=== PATIENT | male | born 1950 | race Hispanic/Latino ===

== ENCOUNTER 2017-07-07 12:17 | Outpatient (RCR) | payer OTHER ==
[~2017-07-07 12:17] MED LIST: AMIODARONE HCL200 MG PO; CLINDAMYCIN HC300 MG PO; COUMADIN5 MG PO; COUMADIN6 MG PO; CRESTOR5 MG PO; ENALAPRIL MALEA20 MG PO; FAMOTIDINE40 MG PO; FUROSEMIDE20 MG PO; GABAPENTIN300 MG PO; GLIPIZIDE10 MG PO; JANUVIA50 MG PO; LANTUS100 UNITS/ INJ; LOSARTAN POTASS25 MG PO; METFORMIN HCL1000 MG PO; METOPROLOL TAR100 MG PO; NEURONTIN600 MG PO; NORCO 10-325 T1 EACH PO; NORVASC5 MG PO; NOVOLOG MI100 UNITS/ INJ; SOMA350 MG PO; TAMSULOSIN HCL0.4 MG PO; TIZANIDINE HCL4 MG PO; TYLENOL # 31 EA PO; VICODIN 5-5001 EACH PO
== END 2017-07-25 ==
LOC: WCC 12:17
PROVIDERS: ATTEND Podiatrist Foot & Ankle Surgery
DX: E11.621 Type 2 diabetes mellitus with foot ulcer (principal); L97.529 Non-pressure chronic ulcer of other part of left foot with unspecified severity; M10.472 Other secondary gout, left ankle and foot; I10 Essential (primary) hypertension; G47.33 Obstructive sleep apnea (adult) (pediatric); I48.2 Chronic atrial fibrillation
CPT/HCPCS: 36415; 82948; G0463

== ENCOUNTER 2017-09-01 12:27 | Outpatient (RCR) | payer OTHER ==
[2017-09-01] MEDS ORDERED: LIDOCAINE VISC 2% SOLN 15 ML UDC ONE (15:21)
== END 2017-09-22 ==
LOC: WCC 12:27
PROVIDERS: ATTEND Podiatrist Foot & Ankle Surgery
DX: E11.621 Type 2 diabetes mellitus with foot ulcer (principal); L97.529 Non-pressure chronic ulcer of other part of left foot with unspecified severity; M10.472 Other secondary gout, left ankle and foot; I10 Essential (primary) hypertension; I48.2 Chronic atrial fibrillation; G47.33 Obstructive sleep apnea (adult) (pediatric)

== ENCOUNTER 2017-10-20 12:30 | Outpatient (RCR) | payer OTHER ==
[~2017-10-20 12:30] MED LIST changes: +LIDOCAINE HCL 2% LOCAL 20 ML VIAL ONE; +LIDOCAINE VISC 2% SOLN 15 ML UDC ONE
[2017-10-20] MEDS ORDERED: LIDOCAINE VISC 2% SOLN 15 ML UDC ONE (13:42)
== END 2017-10-23 ==
LOC: WCC 12:30
PROVIDERS: ATTEND Podiatrist Foot & Ankle Surgery
DX: E11.621 Type 2 diabetes mellitus with foot ulcer (principal); L97.529 Non-pressure chronic ulcer of other part of left foot with unspecified severity; M10.472 Other secondary gout, left ankle and foot; I10 Essential (primary) hypertension; I48.2 Chronic atrial fibrillation; G47.33 Obstructive sleep apnea (adult) (pediatric)
CPT/HCPCS: 11042; 11044; 36415; 82948; J2001

== ENCOUNTER 2017-11-17 12:19 | Outpatient (RCR) | payer OTHER ==
[~2017-11-17 12:19] MED LIST changes: -LIDOCAINE HCL 2% LOCAL 20 ML VIAL ONE; -LIDOCAINE VISC 2% SOLN 15 ML UDC ONE
[2017-11-17] MEDS ORDERED: LIDOCAINE VISC 2% SOLN 15 ML UDC ONE (17:39)
== END 2017-11-22 ==
LOC: WCC 12:19
PROVIDERS: ATTEND Podiatrist Foot & Ankle Surgery
DX: E11.621 Type 2 diabetes mellitus with foot ulcer (principal); L97.529 Non-pressure chronic ulcer of other part of left foot with unspecified severity; M10.472 Other secondary gout, left ankle and foot; I10 Essential (primary) hypertension; I48.2 Chronic atrial fibrillation; G47.33 Obstructive sleep apnea (adult) (pediatric)

== ENCOUNTER 2018-02-02 12:55 | Outpatient (RCR) | payer OTHER | END 2018-02-22 | LOC: WCC 12:55 | PROVIDERS: ATTEND Podiatrist Foot & Ankle Surgery | DX: E11.621 Type 2 diabetes mellitus with foot ulcer (principal); L97.529 Non-pressure chronic ulcer of other part of left foot with unspecified severity; G47.33 Obstructive sleep apnea (adult) (pediatric); I10 Essential (primary) hypertension; I48.2 Chronic atrial fibrillation; M10.472 Other secondary gout, left ankle and foot | CPT/HCPCS: 11042; 15275; 93922; 97597; 99213; Q4131 ==

== ENCOUNTER 2018-03-09 12:58 | Outpatient (RCR) | payer OTHER | END 2018-03-25 | LOC: WCC 12:58 | PROVIDERS: ATTEND Podiatrist Foot & Ankle Surgery | DX: E11.621 Type 2 diabetes mellitus with foot ulcer (principal); L97.529 Non-pressure chronic ulcer of other part of left foot with unspecified severity; M10.472 Other secondary gout, left ankle and foot; I10 Essential (primary) hypertension; I48.2 Chronic atrial fibrillation; G47.33 Obstructive sleep apnea (adult) (pediatric) ==

== ENCOUNTER 2018-04-20 13:24 | Outpatient (RCR) | payer OTHER | END 2018-04-24 | LOC: WCC 13:24 | PROVIDERS: ATTEND Podiatrist Foot & Ankle Surgery | DX: E11.621 Type 2 diabetes mellitus with foot ulcer (principal); L97.529 Non-pressure chronic ulcer of other part of left foot with unspecified severity; M10.472 Other secondary gout, left ankle and foot; I10 Essential (primary) hypertension; I48.2 Chronic atrial fibrillation; G47.33 Obstructive sleep apnea (adult) (pediatric) ==

== ENCOUNTER 2018-06-01 12:46 | Outpatient (RCR) | payer OTHER | END 2018-06-24 | LOC: WCC 12:46 | PROVIDERS: ATTEND Podiatrist Foot & Ankle Surgery | DX: E11.621 Type 2 diabetes mellitus with foot ulcer (principal); L97.529 Non-pressure chronic ulcer of other part of left foot with unspecified severity; I10 Essential (primary) hypertension; I48.2 Chronic atrial fibrillation; M10.472 Other secondary gout, left ankle and foot; G47.33 Obstructive sleep apnea (adult) (pediatric) ==

== ENCOUNTER 2018-06-29 14:07 | Outpatient (RCR) | payer OTHER | END 2018-07-25 | LOC: WCC 14:07 | PROVIDERS: ATTEND Podiatrist Foot & Ankle Surgery | DX: E11.621 Type 2 diabetes mellitus with foot ulcer (principal); L97.529 Non-pressure chronic ulcer of other part of left foot with unspecified severity; I10 Essential (primary) hypertension; I48.2 Chronic atrial fibrillation; M10.472 Other secondary gout, left ankle and foot; G47.33 Obstructive sleep apnea (adult) (pediatric) ==

== ENCOUNTER 2018-08-03 15:15 | Outpatient (RCR) | payer OTHER | END 2018-08-25 | LOC: WCC 15:15 | PROVIDERS: ATTEND Podiatrist Foot & Ankle Surgery | DX: E11.621 Type 2 diabetes mellitus with foot ulcer (principal); L97.529 Non-pressure chronic ulcer of other part of left foot with unspecified severity; I10 Essential (primary) hypertension; G47.33 Obstructive sleep apnea (adult) (pediatric); I48.2 Chronic atrial fibrillation; M10.472 Other secondary gout, left ankle and foot ==

== ENCOUNTER 2019-01-12 10:57 | Inpatient (IN) | payer OTHER ==
[~2019-01-12] VITALS: Ht 172.7 cm; Wt 91.2 kg
[2019-01-12] MEDS ORDERED: NITROGLYCERIN 2% OINT 1 GM PKT TOP STA (11:09)
[2019-01-12] MEDS ORDERED: ASPIRIN 81 MG CHEW TAB PO STA (11:09)
--- NOTE | 2019-01-12 11:25 | NUR ---
rec'd pt in walking rounds with gerdarn for continuity of care. iv access obtained. placed in a gown and on the monitor. meds given per 's ordrs. call syed in hand. bed low/locked
[2019-01-12 11:29] LABS: BASOPHILS % 0.5 % (0.0-1.0); EOSINOPHILS # (AUTO) 0.2 (0.0-0.4); EOSINOPHILS % 2.6 % (0.0-6.0); HEMATOCRIT 40.2 % (38.2-49.6); HEMOGLOBIN 13.3 g/dL (14.0-18.0); LYMPHOCYTES # (AUTO) 2.3 (1.0-3.2); LYMPHOCYTES % 28.1 % (18.0-39.1); MEAN CORPUSCULAR HEMOGLOBIN 26.3 pg (28-32); MEAN CORPUSCULAR HGB CONC 33.1 g/dL (31-35); MEAN CORPUSCULAR VOLUME 79.6 fL (81-99); MONOCYTES # (AUTO) 0.6 (0.2-0.8); MONOCYTES % 6.6 % (4.4-11.3); NEUTROPHILS # (AUTO) 5.1 (2.1-6.9); PLATELET COUNT 259 x10e3/uL (140-360); RED BLOOD COUNT 5.05 x10e6/uL (4.3-5.7); RED CELL DISTRIBUTION WIDTH 14.6 % (11.7-14.4)
[2019-01-12 11:33] LABS: BILIRUBIN,URINE NEGATIVE (NEGATIVE); CLARITY,URINE CLEAR (CLEAR); COLOR,URINE YELLOW (YELLOW); KETONES,URINE NEGATIVE (NEGATIVE); LEUKOCYTE ESTERASE ,URINE NEGATIVE (NEGATIVE); NITRITE,URINE NEGATIVE (NEGATIVE); PROTEIN,URINE DIPSTICK NEGATIVE (NEGATIVE); URINE UROBILINOGEN 0.2 mg/dL (0.2 - 1)
[2019-01-12 11:40] LABS: INR 1.29; PROTHROMBIN TIME 16.7 seconds (11.9-14.5)
[2019-01-12] MEDS ORDERED: METOPROLOL TARTRATE 50 MG TAB PO ONE (11:45)
[2019-01-12] MEDS ORDERED: METOPROLOL TARTRATE INJ 1 MG/ML VIAL IV ONE (11:45)
[2019-01-12 11:50] LABS: EPITHELIAL CELLS,URINE RARE /LPF
--- NOTE | 2019-01-12 12:14 | Diagnostic Imaging Report ---
Examination: Single AP view of the chest. COMPARISON: None. INDICATION: Chest pain DISCUSSION: Lungs are well-inflated. Linear opacities in the right midlung reflect fibrotic change or subsegmental atelectasis. No airspace consolidation, pleural effusion, or pneumothorax. Cardiomediastinal contour is within normal limits when accounting for portable, AP technique and rightward patient rotation. No acute osseous abnormality. IMPRESSION: Subsegmental atelectasis or focal scar in the right midlung. Otherwise no acute cardiopulmonary abnormality. Signed by: Dr. Avtar Will M.D. on 01/12/2019 12:11 PM
[2019-01-12 12:42] LABS: ALANINE AMINOTRANSFERASE 29 IU/L (0-55); ALBUMIN 4.5 g/dL (3.5-5.0); ALBUMIN/GLOBULIN RATIO 1.3 (0.8-2.0); ALKALINE PHOSPHATASE 62 IU/L (40-150); ANION GAP 20.1 mmol/L (8-16); BLOOD UREA NITROGEN 16 mg/dL (7-26); BUN/CREATININE RATIO 16 (6-25); CALCIUM 10.1 mg/dL (8.4-10.2); CARBON DIOXIDE 24 mmol/L (22-29); CHLORIDE 102 mmol/L (98-107); CREATINE KINASE 109 IU/L (30-200); CREATININE, SERUM 0.97 mg/dL (0.72-1.25); EST GLOMERULAR FILTRATION RATE > 60 ML/MIN (60-); GLUCOSE 100 mg/dL (74-118); POTASSIUM 4.1 mmol/L (3.5-5.1); SODIUM 142 mmol/L (136-145)
[2019-01-12] MEDS ORDERED: MORPHINE SULFATE 2 MG/ML SYR 1ML IV PRN (12:45)
[2019-01-12] MEDS ORDERED: FAMOTIDINE 20 MG/2 ML VIAL IV SCH (12:45)
[2019-01-12] MEDS ORDERED: NITROGLYCERIN 0.4 MG SUBL SL PRN (12:45)
[2019-01-12] MEDS ORDERED: DEXTROSE 50% SYRINGE 50 ML IV PRN (12:45)
[2019-01-12] MEDS ORDERED: ONDANSETRON HCL INJ 2MG/ML 2ML 2 MG/ML VIAL IV PRN (12:45)
--- OUTSIDE RECORDS SUMMARY | 2019-01-12 13:05 | XMS REPORT ---
Author Author [facility] Address Unknown Phone Unavailable Care Team Providers Care Facial Operator Name Role Phone Elio LLANES Unavailable Unavailable Problems This patient has no known problems. Allergies, Adverse Reactions, Alerts This patient has no known allergies or adverse reactions. Medications This patient has no known medications. Results Test Description Test Time Test Comments Text Results Atomic Results Result Comments CHEST SINGLE (PORTABLE) 2019-01-12 12:10:00 [place] [id number] Patient Name: SILVINO COELHO MR #: [id number] : 1950 Age/Sex: 68/M Req #: [id number] Adm Physician: Ordered by: YOLI LLANES MD Report #: [id number] Location: ER Room/Bed: Procedure: [id number] DX/CHEST SINGLE (PORTABLE) Exam Date: Exam Time: REPORT STATUS: Signed Examination: Single AP view of the chest. COMPARISON: None. INDICATION: Chest pain DISCUSSION: Lungs are well- inflated. Linear opacities in the right midlung reflect fibrotic change or subsegmental atelectasis. No airspace consolidation, pleural effusion, or pneumothorax. Cardiomediastinal contour is within normal limits when accounting for portable, AP technique and rightward patient rotation. No acute osseous abnormality. IMPRESSION: Subsegmental atelectasis or focal scar in the right midlung. Otherwise no acute cardiopulmonary abnormality. Signed by: Dr. Iram Cabrera M.D. on 01/12/2019 12:11 PM Dictated By: IRAM CABRERA MD 10 Transcribed By: SHAILA on 01/12/191210 COPY TO: YOLI LLANES MD
[2019-01-12] MEDS ORDERED: MORPHINE SULFATE INJ 4 MG/ML INJ 1ML IV PRN (13:30)
--- NOTE | 2019-01-12 15:08 | NUR ---
Patient admitted to unit from ER. Patient arrived via stretcher. patient is AAOx3. Patient c/o chest pain. No radiating pain at this time. Patient has a hx of afib. Lung cevallos clear to auscultation. Bowel sounds present x4. No edema noted. RIght BKA. Left great toe old foot wound. No open area or drainage noted. 3rd digit toenail on left foot noted to be dark in color. No c/o pain at this time. Right forearm IV in place. Family at bedside
[2019-01-12 15:18] VITALS: BP 180/80
[2019-01-12 15:22] VITALS: BP 180/80
[2019-01-12 15:30] VITALS: BP 194/105
[2019-01-12] MEDS ORDERED: TIZANIDINE HCL 4 MG TAB PO PRN (15:45)
[2019-01-12] MEDS: AMIODARONE HCL 200 MG TAB PO SCH (15:58)
[2019-01-12] MEDS: GLIPIZIDE 5 MG TAB PO SCH (15:58)
[2019-01-12] MEDS: LOSARTAN POTASSIUM 25 MG TAB PO SCH (15:58)
[2019-01-12] MEDS: TAMSULOSIN HCL 0.4 MG CAP PO SCH (15:58)
[2019-01-12] MEDS ORDERED: AMLODIPINE BESYLATE 5 MG TAB PO SCH (16:00)
[2019-01-12] MEDS: HYDROCODONE/APAP 10MG-325MG TAB PO PRN ×2 (16:01→20:50)
[2019-01-12] MEDS: INSULIN LISPRO 100 UNIT/1 ML 3ML VIAL SQ SCH ×2 (16:01→20:39)
[2019-01-12] MEDS ORDERED: HYDRALAZINE HCL 20 MG/ML VIAL IV PRN (16:30)
[2019-01-12] MEDS ORDERED: NON-FORMULARY MEDICATION (Glipizide 10 MG) PO SCH (17:00)
[2019-01-12] MEDS ORDERED: METFORMIN HCL 500 MG TAB PO SCH (17:00)
[2019-01-12] MEDS ORDERED: WARFARIN SOD 5 MG TAB PO SCH (17:00)
[2019-01-12] MEDS ORDERED: NON-FORMULARY MEDICATION (Metformin Hcl 1,000 MG) PO SCH (17:00)
--- NOTE | 2019-01-12 18:35 | NUR ---
Consent signed for Stress test. explained testing. Family in room.
[2019-01-12] MEDS ORDERED: NON-FORMULARY MEDICATION (Famotidine 40 MG) PO SCH (21:00)
[2019-01-12] MEDS: GABAPENTIN 300 MG CAP PO SCH (21:14)
[2019-01-12] MEDS: METOPROLOL TARTRATE 25 MG TAB PO SCH (21:14)
[2019-01-12] MEDS: FAMOTIDINE 20 MG TAB PO SCH (21:14)
[2019-01-12] MEDS: CLINDAMYCIN HCL 150 MG CAP PO SCH (21:14)
[2019-01-12 21:29] LABS: CREATINE KINASE MB 2.7 ng/mL (0-5.0)
[2019-01-12 21:38] VITALS: BP 147/80
--- NOTE | 2019-01-12 23:54 | Consultation ---
DATE OF CONSULTATION: 01/12/2019 Cardiology Consultation CHIEF COMPLAINT: The patient is a 68-year-old with chest pain. HISTORY OF PRESENT ILLNESS: The patient is a 68-year-old, who was in the physician's office when he experienced a fist-like chest pain, which lasted about 5 minutes. The patient was sent to the emergency room for evaluation. The patient reports it is chronic atrial fibrillation. He has had similar pains multiple times in the past. No shortness of breath. No nausea. No vomiting. No abdominal pain. PAST MEDICAL HISTORY: Significant for: 1. Chronic atrial fibrillation. 2. Diabetes mellitus. 3. Hypertension. 4. Right knee amputation. 5. Appendectomy. 6. Back surgery. CURRENT MEDICATIONS: At home include amiodarone, amlodipine, gabapentin, insulin, metformin, metoprolol. SOCIAL HISTORY: The patient does not drink and does not smoke. FAMILY HISTORY: There is a known family history of coronary artery disease. PHYSICAL EXAMINATION: GENERAL: The patient is a well-developed, well-nourished male, in no obvious distress. VITAL SIGNS: Included temperature of 97.1, blood pressure 160/80. NECK: Supple. No jugular venous distention. No carotid bruits. CHEST: Clear to auscultation and percussion. CARDIAC: Demonstrated normal S1 and S2 with an irregularly irregular rhythm. ABDOMEN: Demonstrated good bowel sounds. No tenderness and no masses. EXTREMITIES: The patient had a oyuod-xrf-pexn amputation. NEUROLOGIC: The patient was alert and oriented x3. Cranial nerves II through XII are intact. Motor strength +5/+5 in all limbs. IMAGING STUDIES: The patient's EKG demonstrated atrial fibrillation with some nonspecific ST and T-wave changes. IMPRESSION: The patient is a 68-year-old with chronic atrial fibrillation, admitted with atypical chest pain. RECOMMENDATIONS: As follows: 1. An echocardiogram has been ordered. 2. The patient will need to be monitored on telemetry. 3. Cardiac enzymes have been ordered. 4. A Lexiscan nuclear stress test will need to be done to exclude ischemia. MD RUI Love/YANIQUE /[id number] cc: MD Ravi Johnston MD
[2019-01-13] VITALS (8 sets, daily range): BP systolic 124–148; BP diastolic 64–85
[2019-01-13] MEDS: CLINDAMYCIN HCL 150 MG CAP PO SCH ×3 (04:54→21:21)
[2019-01-13 05:32] LABS: BASOPHILS # (AUTO) 0.1 (0.0-0.1); BASOPHILS % 0.5 % (0.0-1.0); EOSINOPHILS # (AUTO) 0.2 (0.0-0.4); EOSINOPHILS % 2.2 % (0.0-6.0); HEMATOCRIT 38.1 % (38.2-49.6); HEMOGLOBIN 12.2 g/dL (14.0-18.0); LYMPHOCYTES # (AUTO) 2.4 (1.0-3.2); LYMPHOCYTES % 25.4 % (18.0-39.1); MEAN CORPUSCULAR HEMOGLOBIN 25.7 pg (28-32); MEAN CORPUSCULAR VOLUME 80.4 fL (81-99); MONOCYTES # (AUTO) 0.8 (0.2-0.8); MONOCYTES % 8.4 % (4.4-11.3); NEUTROPHILS % 62.8 % (38.7-80.0); PLATELET COUNT 270 x10e3/uL (140-360); RED BLOOD COUNT 4.74 x10e6/uL (4.3-5.7); RED CELL DISTRIBUTION WIDTH 14.6 % (11.7-14.4)
[2019-01-13 05:53] LABS: CREATINE KINASE MB 1.2 ng/mL (0-5.0)
[2019-01-13 06:11] LABS: ALANINE AMINOTRANSFERASE 25 IU/L (0-55); ALBUMIN 3.9 g/dL (3.5-5.0); ALBUMIN/GLOBULIN RATIO 1.2 (0.8-2.0); ALKALINE PHOSPHATASE 57 IU/L (40-150); BLOOD UREA NITROGEN 18 mg/dL (7-26); BUN/CREATININE RATIO 18 (6-25); CALCIUM 9.6 mg/dL (8.4-10.2); CARBON DIOXIDE 26 mmol/L (22-29); CHLORIDE 101 mmol/L (98-107); CHOL/HDL RATIO 2.4 (3.9-4.7); CHOLESTEROL 132 MD/DL (0-199); CREATININE, SERUM 1.01 mg/dL (0.72-1.25); EST GLOMERULAR FILTRATION RATE > 60 ML/MIN (60-); GLUCOSE 130 mg/dL (74-118); HDL CHOLESTEROL 54 MG/DL (40-60); LDL CHOLESTEROL 54 MG/DL (60-130); SODIUM 138 mmol/L (136-145); TRIGLYCERIDES 122 MG/DL (0-149)
[2019-01-13] MEDS: INSULIN LISPRO 100 UNIT/1 ML 3ML VIAL SQ SCH ×4 (07:30→21:24)
[2019-01-13] MEDS ORDERED: FUROSEMIDE 20 MG TAB PO SCH (09:00)
--- NOTE | 2019-01-13 09:57 | History and Physical ---
PRIMARY CARE PHYSICIAN: Dr. Ravi Castañeda. SHIP SCRAPER: Dr. Avtar Lezama. CHIEF COMPLAINT: Chest pain. HISTORY OF PRESENT ILLNESS: The patient is a pleasant 68-year-old male, who came to the hospital with complaint of chest pain. The patient is otherwise stable. He does have baseline atrial fibrillation. Cardiac enzyme is negative. The patient is pending for a stress test. PAST MEDICAL HISTORY: Including peripheral vascular disease with a stent to the lower extremity. Diabetes type 2, chronic kidney disease, right wvtoo-quu-uhbp amputation, chronic atrial fibrillation, lower back surgery, appendectomy, hypertension. SOCIAL HISTORY: The patient does not smoke or use alcohol. No recreational drug use. ALLERGIES: NO KNOWN ALLERGIES. HOME MEDICATIONS: List is reviewed. REVIEW OF SYSTEMS: Atypical pain, resolved. PHYSICAL EXAMINATION: VITAL SIGNS: Temperature is 98, blood pressure 140/71, pulse rate is 105, respirations 18. GENERAL: The patient is not in acute distress. He is awake. HEENT: Normocephalic, atraumatic. Pupils reactive. Anicteric. NECK: Grossly supple. PULMONARY: Diminished breath sounds without any wheezing or rales. CARDIOVASCULAR: S1, S2. Regular rate and rhythm. ABDOMEN: Soft, obese, otherwise unremarkable. EXTREMITIES: No gross cyanosis or edema. Right BKA. NEUROLOGIC: No gross focal deficit. LABORATORY DATA: Sodium is 138, potassium 4, chloride 101, bicarb 25, BUN 18, creatinine 1.6, glucose is 130. WBC is 9.5, hemoglobin 12.2, hematocrit 38.1, platelets is 270. IMPRESSION: 1. Atypical chest pain. 2. Peripheral vascular disease. 3. Multiple chronic baseline problems. PLAN: The patient will have a stress test today. May discharge home with normal stress test, otherwise he will be admitted for further workup. MD YURIY Johnston/YANIQUE /[id number]
[2019-01-13] MEDS ORDERED: REGADENOSON 0.4 MG/5 ML SYR IV ONE (12:14)
[2019-01-13] MEDS: GLIPIZIDE 5 MG TAB PO SCH ×2 (13:42→16:40)
[2019-01-13] MEDS: AMIODARONE HCL 200 MG TAB PO SCH (13:43)
[2019-01-13] MEDS: ASPIRIN 81 MG ENTERIC COATED PO SCH (13:43)
[2019-01-13] MEDS: TAMSULOSIN HCL 0.4 MG CAP PO SCH (13:44)
[2019-01-13] MEDS: LOSARTAN POTASSIUM 25 MG TAB PO SCH (13:44)
[2019-01-13] MEDS: AMLODIPINE BESYLATE 5 MG TAB PO SCH (13:45)
[2019-01-13] MEDS: GABAPENTIN 300 MG CAP PO SCH ×3 (13:45→21:21)
[2019-01-13] MEDS: METOPROLOL TARTRATE 25 MG TAB PO SCH ×2 (13:45→21:21)
[2019-01-13] MEDS: HYDROCODONE/APAP 10MG-325MG TAB PO PRN ×2 (13:54→21:20)
[2019-01-13] MEDS: INSULIN GLARGINE 100 UNITS/ML VIAL SC SCH (13:59)
[2019-01-13] MEDS: ENOXAPARIN SODIUM INJ 100 MG/ML SYR SC SCH (16:40)
--- NOTE | 2019-01-13 17:30 | NUR ---
The pt. was transferred from [facility] to room 114 due to positive stress test an plans for heart cath and ptca on Wednesday. The pt. requested shower upon arrival and tele was removed and arm wrapped.
--- NOTE | 2019-01-13 19:00 | NUR ---
RECEIVED PATIENT IN BEDSIDE REPORT. PATIENT RESTING IN BED AT THIS TIME. NO PAIN REPORTED. NO S&S OF DISTRESS NOTED. BED LOCKED IN LOWEST POSITION, SIDE RAILS UPX2, CALL LIGHT IN REACH.
--- NOTE | 2019-01-13 19:10 | Myoview Stress Test ---
DATE OF STUDY: 01/12/2019 16:16:00 Stress Test - Treadmill ONLY INDICATION: Chest pain. TECHNIQUE: The patient was given 11 mCi of Myoview. Resting images were obtained in the horizontal long axis, vertical long axis, and short axis. The patient was then hooked up to the EKG machine, Lexiscan was infused over 15 seconds. Immediately after Lexiscan infusion, the patient was given 33 mCi of Myoview. Stress images were obtained 30 minutes after completion of Lexiscan infusion. Stress images were obtained in the horizontal long axis, vertical long axis, and short axis. RESULTS: 1. The resting EKG demonstrated atrial fibrillation with some nonspecific ST and T-wave changes. 2. There were no EKG changes and no symptoms during Lexiscan infusion. 3. There was normal perfusion to all segments of the myocardium on the resting images. 4. There was diminished perfusion to the anterior septum on the stress images. 5. There was normal left ventricular size and function with an ejection fraction of 57%. CONCLUSIONS: There was a reversible defect in the anterior septum concerning for ischemia. MD FRED Love/MODL /[id number]
[2019-01-13] MEDS: FAMOTIDINE 20 MG TAB PO SCH (21:21)
[2019-01-14] VITALS (8 sets, daily range): BP systolic 117–138; BP diastolic 58–81
[2019-01-14] MEDS: ENOXAPARIN SODIUM INJ 100 MG/ML SYR SC SCH ×2 (05:35→17:42)
[2019-01-14] MEDS: CLINDAMYCIN HCL 150 MG CAP PO SCH ×3 (05:35→21:18)
--- NOTE | 2019-01-14 07:00 | NUR ---
BEDSIDE SHIFT REPORT RECEIVED FROM NIGHT RN, PT IN STABLE CONDITION, DENIES PAIN AT THIS TIME, R AC 20G NO SS OF INFILTRATION NOTED, LEFT PEDAL PULSE PALPABLE, UPDATED ON POC VOICED UNDERSTANDING, CALL LIGHT IN REACH WILL CONTINUE OT MONITOR
[2019-01-14] MEDS: INSULIN LISPRO 100 UNIT/1 ML 3ML VIAL SQ SCH ×4 (07:30→21:26)
[2019-01-14] MEDS: GLIPIZIDE 5 MG TAB PO SCH ×2 (08:30→17:41)
[2019-01-14] MEDS: AMIODARONE HCL 200 MG TAB PO SCH (09:15)
[2019-01-14] MEDS: HYDROCODONE/APAP 10MG-325MG TAB PO PRN ×3 (09:15→21:25)
[2019-01-14] MEDS: INSULIN GLARGINE 100 UNITS/ML VIAL SC SCH (09:15)
[2019-01-14] MEDS: GABAPENTIN 300 MG CAP PO SCH ×3 (09:15→21:18)
[2019-01-14] MEDS: TAMSULOSIN HCL 0.4 MG CAP PO SCH (09:15)
[2019-01-14] MEDS: ASPIRIN 81 MG ENTERIC COATED PO SCH (09:15)
[2019-01-14] MEDS: METOPROLOL TARTRATE 25 MG TAB PO SCH ×2 (09:15→21:18)
[2019-01-14] MEDS: AMLODIPINE BESYLATE 5 MG TAB PO SCH (09:15)
[2019-01-14] MEDS: LOSARTAN POTASSIUM 25 MG TAB PO SCH (09:15)
[2019-01-14] MEDS ORDERED: ONDANSETRON HCL 4 MG ORAL DISINTEGRATING TAB PO PRN (10:15)
--- NOTE | 2019-01-14 15:59 | NUR ---
Nutrition Screen Note RD Recommendation for Physician: Continue current diet as ordered Plan of Care: RD following, monitoring for tolerance and adequacy Nutrition reason for involvement: Nutrition Risk Trigger - MST Primary Diagnose(s): 1. Atypical chest pain. 2. Peripheral vascular disease. 3. Multiple chronic baseline problems. PMH: peripheral vascular disease with a stent to the lower extremity, diabetes type 2, chronic kidney disease, right nlunj-klx-mzda amputation, chronic atrial fibrillation, lower back surgery, appendectomy, hypertension Ht: 68in Wt: 202.01lb BMI: n/a IBW: 145lbs RD Assessment: (01/14) Chart reviewed. Labs and meds reviewed. 68yo M, who was admitted for chest pain. Visited pt in the room. Pt reported good appetite. No complains of nausea or vomiting. Pt denied any chewing or swallowing difficulty. Weight has been stable. 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 Current diet is appropriate and adequate. Will continue to monitor and follow. Current Diet: ADA 1600 Malnutrition Evaluation (01/14) The patient does not meet criteria for a specified degree of malnutrition at this time. Will re-evaluate at follow-up as appropriate. Diet Education Needs Assessment: Diet education not indicated. Nutrition Care Level: low Signed: Gemma Merino, MS, RD, LD
--- NOTE | 2019-01-14 19:00 | NUR ---
RECEIVED PATIENT IN BEDSIDE REPORT. PATIENT REPORTS PAIN IS 4/10. NO S&S OF DISTRESS NOTED. BED LOCKED IN LOWEST POSITION. SIDE RAILS UPX2. CALL LIGHT IN REACH.
--- NOTE | 2019-01-14 19:40 | NUR ---
DISCUSSED WITH PATIENT IMPORTANCE OF TURNING SIDE TO SIDE TO REDUCE RISK OF PRESSURE INJURY. PATIENT STATED HE CAN TURN SIDE TO SIDE BUT DOES NOT OFTEN STAY ON SIDE DUE TO PAIN IN LEGS. PATIENT STATES HE GETS OUT OF BED TO HIS WHEELCHAIR ONLY WHEN HE NEEDS TO SHOWER OR HAVE A BOWEL MOVEMENT. APPLIED ALTERNATING PRESSURE PUMP TO MATTRESS, EXPLAINING IT WILL REDUCE RISK OF SKIN INJURY. ADDITIONALLY, GOT WEDGE TO HELP HIM STAY PARTIALLY ON SIDES WITHOUT CAUSING THE PAIN OF BEING FULLY ON SIDE. PATIENT'S SKIN IS INTACT, NO REDNESS NOTED TO SACRUM AT THIS TIME. PATIENT VERBALIZED UNDERSTANDING.
[2019-01-14] MEDS: FAMOTIDINE 20 MG TAB PO SCH (21:18)
[2019-01-15] VITALS (7 sets, daily range): BP systolic 122–164; BP diastolic 67–85
[2019-01-15] MEDS: CLINDAMYCIN HCL 150 MG CAP PO SCH ×3 (05:43→21:18)
[2019-01-15] MEDS: ENOXAPARIN SODIUM INJ 100 MG/ML SYR SC SCH ×2 (05:43→16:14)
[2019-01-15] MEDS: ASPIRIN 81 MG ENTERIC COATED PO SCH (08:38)
[2019-01-15] MEDS: INSULIN LISPRO 100 UNIT/1 ML 3ML VIAL SQ SCH ×4 (08:38→21:00)
[2019-01-15] MEDS: GLIPIZIDE 5 MG TAB PO SCH ×2 (08:38→16:14)
[2019-01-15] MEDS: AMLODIPINE BESYLATE 5 MG TAB PO SCH (08:39)
[2019-01-15] MEDS: METOPROLOL TARTRATE 25 MG TAB PO SCH ×2 (08:39→21:00)
[2019-01-15] MEDS: TAMSULOSIN HCL 0.4 MG CAP PO SCH (08:39)
[2019-01-15] MEDS: AMIODARONE HCL 200 MG TAB PO SCH (08:39)
[2019-01-15] MEDS: LOSARTAN POTASSIUM 25 MG TAB PO SCH (08:39)
[2019-01-15] MEDS: INSULIN GLARGINE 100 UNITS/ML VIAL SC SCH (08:39)
[2019-01-15] MEDS: GABAPENTIN 300 MG CAP PO SCH ×3 (08:39→21:00)
[2019-01-15] MEDS: HYDROCODONE/APAP 10MG-325MG TAB PO PRN ×3 (08:46→22:42)
[2019-01-15 11:03] LABS: BASOPHILS # (AUTO) 0.1 (0.0-0.1); BASOPHILS % 0.7 % (0.0-1.0); EOSINOPHILS # (AUTO) 0.2 (0.0-0.4); EOSINOPHILS % 2.1 % (0.0-6.0); HEMATOCRIT 40.2 % (38.2-49.6); HEMOGLOBIN 13.4 g/dL (14.0-18.0); LYMPHOCYTES # (AUTO) 1.8 (1.0-3.2); LYMPHOCYTES % 24.5 % (18.0-39.1); MEAN CORPUSCULAR HEMOGLOBIN 26.5 pg (28-32); MEAN CORPUSCULAR HGB CONC 33.3 g/dL (31-35); MEAN CORPUSCULAR VOLUME 79.6 fL (81-99); MONOCYTES # (AUTO) 0.6 (0.2-0.8); MONOCYTES % 8.3 % (4.4-11.3); NEUTROPHILS # (AUTO) 4.8 (2.1-6.9); NEUTROPHILS % 63.7 % (38.7-80.0); PLATELET COUNT 270 x10e3/uL (140-360); RED BLOOD COUNT 5.05 x10e6/uL (4.3-5.7); RED CELL DISTRIBUTION WIDTH 14.5 % (11.7-14.4)
[2019-01-15 11:31] LABS: ANION GAP 14.1 mmol/L (8-16); BLOOD UREA NITROGEN 13 mg/dL (7-26); BUN/CREATININE RATIO 15 (6-25); CALCIUM 9.1 mg/dL (8.4-10.2); CARBON DIOXIDE 25 mmol/L (22-29); CHLORIDE 103 mmol/L (98-107); CREATININE, SERUM 0.86 mg/dL (0.72-1.25); EST GLOMERULAR FILTRATION RATE > 60 ML/MIN (60-); GLUCOSE 220 mg/dL (74-118); POTASSIUM 4.1 mmol/L (3.5-5.1); SODIUM 138 mmol/L (136-145)
--- NOTE | 2019-01-15 19:06 | NUR ---
Report given to oncoming nurse of patient's status. Resting in bed, side rails upx2, call light within reach. AAOX3 to time, person,place. Respirations even and unlabored. no s/s of acute distress noted.
--- NOTE | 2019-01-15 20:00 | NUR ---
INITIAL ASSESSMENT COMPLETE, PT IN BED, C/O LEG SPASMS, AND NEUROPATHY, TELE ON PT #6, NO DRAINAGE TO LEFT TOE SCAB, IV INTACT, RIGHT BKA, CALL LIGHT IN REACH, NO C/O PAIN AT THIS TIME
[2019-01-15] MEDS: FAMOTIDINE 20 MG TAB PO SCH (21:00)
[2019-01-16] VITALS (8 sets, daily range): BP systolic 125–155; BP diastolic 58–79
--- NOTE | 2019-01-16 | NUR ---
pt awake for vs, vs stable, no distress noted, call light in reach, no other needs
[2019-01-16] MEDS: CLINDAMYCIN HCL 150 MG CAP PO SCH ×3 (06:00→21:33)
[2019-01-16] MEDS: ENOXAPARIN SODIUM INJ 100 MG/ML SYR SC SCH ×2 (06:00→17:48)
--- NOTE | 2019-01-16 06:17 | NUR ---
pt awake for meds, vs stable, call light in reach, no distress or pain noted.
--- NOTE | 2019-01-16 07:15 | NUR ---
PT RESTING IN BED AA0X3. PT IS IN NO S.S OF DISTRESS PT HAS AN IV TO THE RIGHT AC 20 SL PATENT AND DRY PT IS ON TELEMETRY MONITORING RUNNING A FIB CONTROLLED PT IS ON RA TOLERATING WELL, NO SOB NOTED OR REPORTED PT HAS A BKA (OLD STUMP) WILL CONTINUE MONITOR PT CLOSELY, SIDE RAILX2, BED WHEELS LOCKED CALL LIGHT IS WITHIN EASY REACH, INSTRUCTED TO CALL FOR ASSISTANCE IF NEEDED
[2019-01-16] MEDS: ASPIRIN 81 MG ENTERIC COATED PO SCH (08:28)
[2019-01-16] MEDS: GABAPENTIN 300 MG CAP PO SCH ×3 (08:29→20:36)
[2019-01-16] MEDS: TAMSULOSIN HCL 0.4 MG CAP PO SCH (08:29)
[2019-01-16] MEDS: AMIODARONE HCL 200 MG TAB PO SCH (08:29)
[2019-01-16] MEDS: LOSARTAN POTASSIUM 25 MG TAB PO SCH (08:29)
[2019-01-16] MEDS: METOPROLOL TARTRATE 25 MG TAB PO SCH ×2 (08:29→20:36)
[2019-01-16] MEDS: AMLODIPINE BESYLATE 5 MG TAB PO SCH (08:29)
[2019-01-16] MEDS: INSULIN GLARGINE 100 UNITS/ML VIAL SC SCH (08:30)
[2019-01-16] MEDS: INSULIN LISPRO 100 UNIT/1 ML 3ML VIAL SQ SCH ×4 (08:38→20:47)
[2019-01-16] MEDS: GLIPIZIDE 5 MG TAB PO SCH ×2 (08:38→17:48)
[2019-01-16] MEDS: HYDROCODONE/APAP 10MG-325MG TAB PO PRN ×3 (08:39→20:37)
[2019-01-16] MEDS ORDERED: BISACODYL 10 MG SUPP PR ONE (09:00)
[2019-01-16] MEDS ORDERED: MAGNESIUM HYDROXIDE 30 ML UDC PO ONE (09:00)
[2019-01-16] MEDS ORDERED: BISACODYL 10 MG SUPP PR PRN (09:00)
[2019-01-16] MEDS ORDERED: MAGNESIUM HYDROXIDE 30 ML UDC PO PRN (09:00)
[2019-01-16] MEDS: SENNOSIDES 8.6 MG TAB PO SCH ×2 (10:11→17:48)
--- NOTE | 2019-01-16 10:17 | NUR ---
IMM EXPLAINED TO PT, SIGNED BY PT AND PUT IN PT'S CHART COPY TO PT IN CARE TRANSITIONS FOLDER
--- NOTE | 2019-01-16 17:30 | NUR ---
PAGED MD BERNABE REGARDING ADMINISTRATION OF LOVENOX DOSE AT 1800. AWAITING FOR CALL BACK
[2019-01-16 18:43] LABS: INR 0.99; PROTHROMBIN TIME 13.6 seconds (11.9-14.5)
[2019-01-16] MEDS: FAMOTIDINE 20 MG TAB PO SCH (20:36)
[2019-01-17] VITALS (16 sets, daily range): BP systolic 120–158; BP diastolic 66–88
--- NOTE | 2019-01-17 04:37 | NUR ---
PATIENT PREPARED FOR PROCEDURE TODAY WITH JONE.
[2019-01-17] MEDS: CLINDAMYCIN HCL 150 MG CAP PO SCH ×2 (05:40→14:09)
[2019-01-17] MEDS ORDERED: HEPARIN SOD (PORCINE) 1000 UNIT/ML 30ML ONE (07:03)
[2019-01-17] MEDS ORDERED: MIDAZOLAM HCL 2 MG/2 ML VIAL ONE ×2 (07:03→07:54)
[2019-01-17] MEDS ORDERED: FENTANYL CITRATE/PF 100MCG/2 ML INJ ONE (07:03)
[2019-01-17] MEDS ORDERED: LIDOCAINE HCL 2% LOCAL 20 ML VIAL ONE (07:03)
[2019-01-17] MEDS ORDERED: IOPAMIDOL 370 MG/ML 200 ML INFUS..BTL INJ ONE ×2 (07:03→07:04)
[2019-01-17] MEDS ORDERED: SODIUM CHLORIDE 0.9% 1000ML 1,000 ML ONE (07:04)
[2019-01-17] MEDS ORDERED: NITROGLYCERIN/D5W 200 MCG/ML 250 ML ONE (07:04)
[2019-01-17] MEDS ORDERED: VERAPAMIL HCL 2.5 MG/ML 2 ML VIAL ONE (07:08)
--- NOTE | 2019-01-17 07:10 | NUR ---
PT OFF UNIT FOR OPHTHALMIC PATHOLOGIST
[2019-01-17] MEDS: INSULIN LISPRO 100 UNIT/1 ML 3ML VIAL SQ SCH ×2 (07:30→12:16)
--- NOTE | 2019-01-17 08:45 | NUR ---
0845am Received pt in Rm #9 Identiferx2. [facility], DR Lezama, no fix . Rt TR band approach (13cc R=TR Band.Received handoff Beny BAY, Back to baseline orientation Ox4 Respiration regular on RA 98%. at bedside knows POC ok to remove air at 9:20am. Neurovascular function intact.Abdomen soft and non tender denies necessity to defecate or urinate. left ppx2 Doppler. Rt. amputation . RT iv noted w/o infiltration infusing NS 800cc in bag. Assist with snack tray tolerated well Denies c/o. No gross issues pain pallor pressure or dysrhythmia. ds/rn
--- NOTE | 2019-01-17 09:20 | NUR ---
0920am Tr band air removal started with 13cc in balloon. returned to rm 114 . -2cc positive 11cc Neuro vascular function intact. 0930am oozed a little pause air reduction Neuro vascular function intact No active bleeding. 0945am resumed air removal -2cc positive 9cc Normal neuro vascular function.positive 9cc 1000am -2cc no ooze normal neuro vascular function positive 7cc 1015am -2cc no ooze TR band off phoned report to floor staff Sterile 2x2 with Tegaderm and Coban with splint. Instructed on POC and aware.NO gross issues pain pallor pressure or dysrhythmia. Normal neuro vascular function.
--- NOTE | 2019-01-17 10:25 | NUR ---
REPORT RECEIVED FROM TED IN SPACE TECHNOLOGIST AWAITING FOR PT TO ARRIVE TO FLOOR
--- NOTE | 2019-01-17 10:30 | NUR ---
1030am Report to [facility] Duncan face to face Stable vs and EKg NOrmal neuro vascular function. Tolerating po intact NO bleeding splint with coban ask keep in till shower in am. No heavy use 1wk or submerge 1wk. Left pt room call light at bedside .Ask to request for help to get up and family at bedside.Denies discomfort
--- NOTE | 2019-01-17 10:45 | NUR ---
PT BACK FROM [facility] REPORTER . RIGHT WRIST PRESENT S/P HEART CATH. PT ABLE TO MOVE DIGITS, CAP REFILL <3 SEC. PT IS RESTING RIGHT ARM ON PILLOW FAMILY IS AT BEDSIDE , WILL CONTINUE TO MONITOR
[2019-01-17] MEDS: GABAPENTIN 300 MG CAP PO SCH ×2 (10:52→14:09)
[2019-01-17] MEDS: ASPIRIN 81 MG ENTERIC COATED PO SCH (10:52)
[2019-01-17] MEDS: LOSARTAN POTASSIUM 25 MG TAB PO SCH (10:52)
[2019-01-17] MEDS: METOPROLOL TARTRATE 25 MG TAB PO SCH (10:52)
[2019-01-17] MEDS: TAMSULOSIN HCL 0.4 MG CAP PO SCH (10:52)
[2019-01-17] MEDS: AMIODARONE HCL 200 MG TAB PO SCH (10:52)
[2019-01-17] MEDS: AMLODIPINE BESYLATE 5 MG TAB PO SCH (10:52)
[2019-01-17] MEDS: SENNOSIDES 8.6 MG TAB PO SCH (10:53)
[2019-01-17] MEDS: INSULIN GLARGINE 100 UNITS/ML VIAL SC SCH (11:04)
[2019-01-17] MEDS: HYDROCODONE/APAP 10MG-325MG TAB PO PRN (11:07)
--- NOTE | 2019-01-17 11:32 | NUR ---
RIGHT WRIST BRACE IS IN PLACE. CAP REFILL TO ALL FINGERS NOTED <3 SEC PT CAN MOVE FINGERS. WILL CONTINUE TO MONITOR
--- NOTE | 2019-01-17 15:23 | Operative Report ---
DATE OF PROCEDURE: 01/17/2019 SURGEON: Avtar Lezama MD PROCEDURE: Left heart catheterization. INDICATIONS: 1. Chest pain. 2. Abnormal stress test. 3. Coronary artery disease. COMPLICATIONS: None. ANESTHESIA: 1. Versed. 2. Fentanyl. 3. Lidocaine. TECHNIQUE: The right wrist was draped and prepped in the usual manner. The area was anesthetized with lidocaine. Standard Seldinger technique was used to place a 5-Kazakh sheath into the right radial artery without difficulty. A TIG catheter was used to selectively engage the right coronary artery. A JL3.5 catheter was used to selectively engage the left coronary artery. A pigtail catheter was used to perform a left ventriculogram. There were no complications. RESULTS: 1. There is a normal left main trunk. 2. There is a large left anterior descending artery, which gave rise to a medium-sized diagonal branch. There was about 40% stenosis in the mid left anterior descending artery. 3. There was a medium-sized AV circumflex artery, which gave rise to a large bifurcating obtuse marginal branch. There was 40% at the very origin of the AV circumflex artery. 4. There was a large dominant right coronary artery with minimal disease. 5. There was normal left ventricular size and function with an ejection fraction of 60%. CONCLUSION: The patient has some mild nonobstructive coronary artery disease with no significant stenosis. Avtar Lezama MD DSH/MODL /[id number] cc: Dean Carroll MD
--- NOTE | 2019-01-17 15:27 | NUR ---
called md macedo left voicemail asking if pt was ok for dc home . awaiting for call back
--- NOTE | 2019-01-17 16:00 | NUR ---
md hellen mar dc to home iv dc pressure dressing applied and taped dc instructions given, pt verbalized understanding pt is now off unit to home via wheel chair
[2019-01-17] MEDS ORDERED: WARFARIN SOD 5 MG TAB PO SCH (17:00)
[2019-01-18] MEDS ORDERED: AMLODIPINE BESYLATE 10 MG TAB PO SCH (09:00)
== END 2019-01-17 16:11 | disposition home or self-care (01) | DRG 287 ==
LOC: ER 10:57 → ERHOLD 13:03 → IMCU 15:03 → OBSVTOIN 01-13 16:00 → MED/SURG 01-13 17:11 → UNDODISIN 01-14 16:50
PROVIDERS: ADMIT Internal Medicine; ATTEND Internal Medicine
PROC: 4A023N7 Measurement of Cardiac Sampling and Pressure, Left Heart, Percutaneous Approach (ICD-10-PCS; principal; 2019-01-13)
PROC: B2111ZZ Fluoroscopy of Multiple Coronary Arteries using Low Osmolar Contrast (ICD-10-PCS; 2019-01-13)
PROC: B2151ZZ Fluoroscopy of Left Heart using Low Osmolar Contrast (ICD-10-PCS; 2019-01-13)
DX: I25.10 Atherosclerotic heart disease of native coronary artery without angina pectoris (principal); I73.9 Peripheral vascular disease, unspecified; I48.2 Chronic atrial fibrillation; Z79.01 Long term (current) use of anticoagulants; I10 Essential (primary) hypertension
CPT/HCPCS: 36415; 71045; 78452; 80048; 80053; 80061; 81001; 82550; 82553; 82948; 83880; 84484; 85025; 85610; 85730; 93005; 93017; 93306; 93458; 93880; 96372; 99284; A9502; C1769; C1887; G0378; J1644; J1650; J1815; J2001; J2250; J2405; J3010; J7030; Q9967